=== PATIENT | male | born 2000 | race Caucasian/White ===

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

== ENCOUNTER 2019-08-06 16:05 | Emergency (ER) | payer SELFPAY ==
[2019-08-06 16:11] VITALS: BP 116/86; PULSE 86; TEMP 98; BMI 20.7
[2019-08-06] MEDS ORDERED: BACITRACIN 15 GM TUBE TOPICAL OINTMENT ONE (16:24)
[2019-08-06] MEDS ORDERED: IBUPROFEN 600 MG TABLET (FP) PO ONE ×2 (16:29→16:31)
--- NOTE | 2019-08-06 16:33 | PDOC ---
History of Present Illness - General Chief Complaint: Bite Stated Complaint: RT HAND DOG BITE Time Seen by Provider: 08/06/19 16:16 History Source: Patient Exam Limitations: No Limitations - History of Present Illness Associated Symptoms: denies: fever/chills Past History - Travel Close contact w/someone who was outside of country & ill: No - Past Medical History Allergies/Adverse Reactions: Allergies Allergy/AdvReac Type Severity Reaction Status Date / Time No Known Allergies Allergy Verified 08/06/19 16:11 Home Medications: Ambulatory Orders Amox-Tr/K Cl [Augmentin - 875Mg Tablet] 1 tab PO BID #14 tablet 08/06/19 Amox-Tr/K Cl [Augmentin - 875Mg Tablet] 1 tab PO BID #14 tablet 08/06/19 Amoxicillin/Potassium Clav [Augmentin 875-125 Tablet] 1 each PO BID 10 Days #20 tablet 08/06/19 COPD: No Thyroid Disease: No - Psycho Social/Smoking Cessation Hx Smoking History: Never smoked Have you smoked in the past 12 months: No Hx Alcohol Use: No Drug/Substance Use Hx: No Substance Use Type: None Review of Systems - Review of Systems Constitutional: No: Chills, Fever Musculoskeletal: No: Joint Pain, Muscle Weakness Integumentary: Yes: Other (R finger laceration) Neurological: No: Numbness, Paresthesia, Weakness *Physical Exam - Vital Signs Last Vital Signs Temp Pulse Resp BP Pulse Ox 98 F 86 18 116/86 99 08/06/19 16:07 08/06/19 16:07 08/06/19 16:07 08/06/19 16:07 08/06/19 16:07 - Physical Exam General Appearance: Yes: Nourished Respiratory/Chest: positive: Lungs Clear, Normal Breath Sounds Cardiovascular: positive: Regular Rhythm, Regular Rate, S1, S2 Extremity: positive: Normal Capillary Refill, Normal Inspection, Normal Range of Motion, Other (linear laceration in volar aspect of right finger, +SQ tissue exponsure, tendons intact and fuctioning. + abrasoin noted in dorsum aspct of index finger , middle and pinky. thumb spared) Neurologic: positive: occupational therapy specialist II-XII NML intact, Fully Oriented, Alert, Normal Mood/ Affect, Normal Response, Motor Strength 5/5 Procedures - Laceration/Wound Repair Right Upper Distal Volar Finger 4th digit Wound Explored: clean, no foreign body present Wound's Depth, Shape: superficial, flap Irrigated w/ Saline: Yes Betadine Prep: Yes Anesthesia: 2% Lidocaine Wound Repaired With: Sutures Suture Size/Type: 3:0 Number of Sutures: 4 ED Treatment Course - RADIOLOGY Radiology Studies Ordered: Category Date Time Status HAND- RIGHT [RAD] Stat Radiology 08/06/19 16:29 Ordered Medical Decision Making - Medical Decision Making 08/06/19 16:30 18-year-old male [id number] presents with dog bite to multiple digits of the right hand. Patient reported he was attempted to separate his blue nose pitbull dog from another dog from fighting his dog bit him in his hand about an hour ago. His last tetanus was a year ago. Dog is up-to-date with his vaccines. On exam there is evidence of linear laceration with sq tissue in ring finger-- volar aspect, mulitple abrasions also noted in index, middle and 5th finger. thumb spared. FROM in al digits, sensation intact, no evidence of tendon The wound was copiously irrigated with normal saline and Betadine. The wound was explored for foreign bodies and none were found. The wound was prepped and draped in the normal sterile fashion. loose 3.0 nylon stitiches was used to approximate lac in 4th finger. Discharge - Discharge Information Problems reviewed: Yes Clinical Impression/Diagnosis: Dog bite Condition: Stable Disposition: HOME - Admission No - Additional Discharge Information Prescriptions: Amox-Tr/K Cl [Augmentin - 875Mg Tablet] 1 tab PO BID #14 tablet Amox-Tr/K Cl [Augmentin - 875Mg Tablet] 1 tab PO BID #14 tablet Amoxicillin/Potassium Clav [Augmentin 875-125 Tablet] 1 each PO BID 10 Days #20 tablet - Follow up/Referral Referrals: Arden Mooney MD [Staff Physician] - - Patient Discharge Instructions Patient Printed Discharge Instructions: DI for Dog Bite Additional Instructions: Laceration on the year of ring finger was closed today loosely. Please return in 2 days for wound check. Please take antibiotics as prescribed. Follow-up with hand surgeon in the next 2 to 3 days for reassessment. Please return to the emergency room sooner if worsening pain, fever, discharge from the wound occurs. - Post Discharge Activity
[2019-08-06] MEDS ORDERED: BACITRACIN 15 GM TUBE TOPICAL OINTMENT TP ONE (16:43)
== END 2019-08-06 18:00 | disposition home or self-care (01) ==
LOC: JERFT 16:05
PROC: 0JQJ0ZZ Repair Right Hand Subcutaneous Tissue and Fascia, Open Approach (ICD-10-PCS; principal; 2019-08-06)
DX: S61.254A Open bite of right ring finger without damage to nail, initial encounter (principal); S60.418A Abrasion of other finger, initial encounter; W54.0XXA Bitten by dog, initial encounter; Y93.K9 Activity, other involving animal care; Y92.89 Other specified places as the place of occurrence of the external cause; Y99.8 Other external cause status
CPT/HCPCS: 73130-TC-RT-FY; 99282-25

== ENCOUNTER 2019-08-09 20:35 | Emergency (ER) | payer OTHER ==
--- NOTE | 2019-08-09 21:32 | PDOC ---
Suture Removal/Wound Check HPI - History of Present Illness Stated Complaint: REMOVE STITCHES History Source: Yes: Patient Exam Limitations: Yes: No Limitations Treated at: [facility] ED - Previous ED Treatment Type of procedure performed on last visit: Yes: Laceration Repair Tetanus Immunization: Yes: Up to Date Antibiotics Prescribed: Yes (augmentin) Past History - Travel Traveled outside of the country in the last 30 days: No Close contact w/someone who was outside of country & ill: No - Past Medical History Allergies/Adverse Reactions: Allergies Allergy/AdvReac Type Severity Reaction Status Date / Time No Known Allergies Allergy Verified 08/06/19 16:11 Home Medications: Ambulatory Orders Amox-Tr/K Cl [Augmentin - 875Mg Tablet] 1 tab PO BID #14 tablet 08/06/19 Amox-Tr/K Cl [Augmentin - 875Mg Tablet] 1 tab PO BID #14 tablet 08/06/19 Amoxicillin/Potassium Clav [Augmentin 875-125 Tablet] 1 each PO BID 10 Days #20 tablet 08/06/19 COPD: No Thyroid Disease: No - Psycho Social/Smoking Cessation Hx Smoking History: Never smoked Have you smoked in the past 12 months: No Hx Alcohol Use: No Drug/Substance Use Hx: No Substance Use Type: None Suture Removal/Wound Check PE - Physical Exam Laceration/Wound Check Symptoms: reports: Improved. denies: Pain, Redness Current Severity Level: None Maximum Severity Level: None Location of Laceration/Wound: right: Finger (4th finger) *Review of Systems - Review of Systems Able to Perform ROS?: Yes Constitutional: No: Chills, Fever *Physical Exam - Physical Exam General Appearance: Yes: Nourished, Appropriately Dressed. No: Apparent Distress Integumentary: positive: Normal Color, Dry, Warm, Other (4 simple interrupted sutures intact). negative: Erythema, Rash Medical Decision Making - Medical Decision Making 08/09/19 21:29 Pt is a 18 y/o M who presents to the ER for a wound check after a dog bite 3 days ago. Denies fever, pain to the finger, redness around the site, or purlent drainage. A/P: wound check The R4th finger with 4 simple interrupted sutures intact. Good wound approximation No evidence of secondary infection. Pt instructed to continue abx and keep the wound clean and dry. Pt to return in 8 days to have the stitches removed DC home Discharge - Discharge Information Problems reviewed: Yes Clinical Impression/Diagnosis: Visit for wound check Condition: Stable Disposition: HOME - Admission No - Follow up/Referral - Patient Discharge Instructions Patient Printed Discharge Instructions: DI for Laceration Repair -- Simple Additional Instructions: Your wound is healing well Continue to keep the area clean and dry Finish the antibiotics as directed Return in 8 days to have the stitches removed. Return to the ER sooner for increased pain to the area, fever, redness around the site, pus coming from the site or if you have any changes in your symptoms - Post Discharge Activity Work/Back to School Note: Back to Work
== END 2019-08-09 22:10 | disposition home or self-care (01) ==
LOC: JERFT 20:35
DX: Z48.02 Encounter for removal of sutures (principal)
CPT/HCPCS: 99282-25